=== PATIENT | female | born 1990 | race Asian ===

== ENCOUNTER 2019-12-20 23:23 | Emergency (ER) | payer OTHER ==
[~2019-12-20] VITALS: Ht 170.2 cm; Wt 65.8 kg
--- NOTE | 2019-12-20 23:38 | NUR ---
SARAH. ALLERGIC REACTION, UNKNOWN ALLERGEN. BEEN ON DESENSITIZATION TX X 2 WEEKS. EPIPEN USED 15MIN LIBRARY AIDE; PT TO BED 3, PLACED ON MONITOR, -SOB, -CP. PENDING ER PROVIDER NEHEMIAH
--- NOTE | 2019-12-21 | NUR ---
PER DR. SWENSON. PT WILL BE ON ER OBS
--- NOTE | 2019-12-21 03:30 | NUR ---
Patient discharged to home in stable condition. Written and verbal after care instructions given. Patient verbalizes understanding of instruction.Pt ambulatory with a steady gait
[2019-12-21 04:03] VITALS: BP 121/60
== END 2019-12-21 03:30 | disposition home or self-care (01) ==
LOC: ER 23:30
DX: T78.49XA Other allergy, initial encounter (principal); X58.XXXA Exposure to other specified factors, initial encounter